=== PATIENT | male | born 1965 | race Caucasian/White ===

== ENCOUNTER 2018-06-08 10:49 | Emergency (ER) | payer MEDICARE, MEDICAID ==
--- NOTE | 2018-06-08 11:05 | Emergency Department Record ---
History of Present Illness - General Chief Complaint: Suture removal Stated Complaint: SUTURE REMOVED Time Seen by Provider: 06/08/18 11:01 Source: Patient, Family Mode of arrival: Ambulatory Limitations: Physical limitation - History of Present Illness Initial Comments: family states sutures to left forehead for "about two weeks". No complaints. No issues Onset/Timin -: Week(s) Initial Visit For: Laceration Returns Today for: Staple/stitch removal Symptoms Since Prior Visit: No new symptoms Associated Symptoms: None - Related Data Home Medications Medication Instructions Recorded Confirmed Last Taken Phenytoin Sodium Extended 200 mg PO QHS 06/08/18 06/08/18 Unknown [Phenytek] Phenytoin [Dilantin] 50 mg PO QHS 06/08/18 06/08/18 Unknown Allergies Allergy/AdvReac Type Severity Reaction Status Date / Time Penicillins [PENICILLINS] Allergy Unknown pt unsure Unverified 06/08/18 11:05 Review of Systems Constitutional: Denies: Chills, Fever Eyes: Denies: Eye pain ENT: Denies: Congestion Skin: Reports: As per HPI Physical Exam - General General Appearance: Alert, Cooperative, No acute distress - Head Head exam: Atraumatic (wll healed lac to left forehead without signs of infection. ) - Eye Eye exam: Normal appearance - ENT ENT exam: Normal exam - Respiratory Respiratory exam: Normal lung sounds bilaterally - Cardiovascular Cardiovascular Exam: Regular rate - Skin Skin exam: Other (as above) Medical Decision Making - Management Options MDM Management: No Additional Work-up Planned (suture removal and home with local care) Disposition Disposition: Discharge Clinical Impression: Encounter for removal of sutures Disposition: Home, Self-Care Condition: (1) Good Instructions: Stitches Removal (ED) Additional Instructions: Watch for signs of infection and follow up if needed. Forms: Patient Portal Access Quality - Quality Measures Quality Measures: N/A - Blood Pressure Screening Does Patient Have Any of the Following: No Blood Pressure Classification: Normal BP Reading Systolic Measurement: 93 Diastolic Measurement: 78 Screening for High Blood Pressure: < Normal BP, F/U Not Required > [G8783]
== END 2018-06-08 11:27 | disposition home or self-care (01) ==
LOC: ER 10:49
DX: Z48.02 Encounter for removal of sutures (principal)
CPT/HCPCS: 99281

== ENCOUNTER 2019-05-05 13:42 | Emergency (ER) | payer MEDICARE, MEDICAID ==
[2019-05-05] MEDS ORDERED: ACETAMINOPHEN 325 MG TAB PO ONE (14:07)
--- NOTE | 2019-05-05 14:09 | Emergency Department Record ---
History of Present Illness - General Chief Complaint: Neck Injury/Pain Stated Complaint: NECK PAIN Time Seen by Provider: 05/05/19 13:58 Source: Patient Mode of Arrival: Ambulatory Limitations: No limitations - History of Present Illness Initial Comments: The patient is here with his caregiver due to possibly having neck pain for the last few days. He has a hx of a seizure disorder and a head injury and has a [employer]IOR [employer] shunt in place. The patient requires 24 hour care and does not walk and is in a wheelchair at all times. Per the caregiver he has had a "head cold" for the last 5 days and now for a few days seems to be having neck pain. There is no reported POON, vomiting, weakness, or lethargy. Per the caregiver the patient has had no fevers or chills, and no fall or trauma. The caregiver is concerned the patient could have pneumonia or muscle spasms from trying to blow his nose. MD Complaint: Neck pain Onset/Timin -: Days(s) Place: Home Severity: Moderate Severity scale (1-10): 8 - Related Data Previous Rx's Medication Instructions Recorded Levofloxacin [Levaquin] 500 mg PO DAILY #6 tablet 05/05/19 Allergies Allergy/AdvReac Type Severity Reaction Status Date / Time Penicillins [PENICILLINS] Allergy Unknown pt unsure Verified 05/05/19 13:56 Travel Screening - Travel/Exposure Within Last 30 Days Have you traveled within the last 30 days?: No - Travel Symptoms Symptom Screening: None Review of Systems Constitutional: Reports: Malaise. Denies: Chills, Fever Eyes: Denies: Eye discharge ENT: Reports: Congestion Respiratory: Reports: Cough. Denies: Dyspnea Cardiovascular: Denies: Arrhythmia Endocrine: Denies: Fatigue Past Medical History - SOCIAL HISTORY Smoking Status: Never smoker Alcohol Use: None Drug Use: None - RESPIRATORY Hx Respiratory Disorders: No - CARDIOVASCULAR Hx Cardio Disorders: No - NEURO Hx Neuro Disorders: Yes Hx Seizures: Yes - GI Hx GI Disorders: No - Hx Genitourinary Disorders: No - ENDOCRINE Hx Endocrine Disorders: No - MUSCULOSKELETAL Hx Musculoskeletal Disorders: No - PSYCH Hx Psych Problems: No - HEMATOLOGY/ONCOLOGY Hx Hematology/Oncology Disorders: No Family Medical History Any Significant Family History?: No Physical Exam - General General Appearance: Alert, Cooperative, No acute distress - Head Head exam: Atraumatic, Normocephalic, Normal inspection - Eye Eye exam: Normal appearance, PERRL - ENT ENT exam: TM's normal bilaterally Nasal Exam: negative: Sinus tenderness Throat exam: Normal inspection - Neck Neck exam: Normal inspection, Tenderness (There is posterior cervical muscle tenderness.) - Respiratory Respiratory exam: Normal lung sounds bilaterally. negative: Respiratory distress - Cardiovascular Cardiovascular Exam: Regular rate, Normal rhythm, Normal heart sounds - GI/Abdominal GI/Abdominal exam: Soft, Normal bowel sounds. 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 negative: Normal gait, Oriented X3 Course Vital Signs 05/05/19 13:48 Temperature 99.0 F Pulse Rate 79 Respiratory 18 Rate Blood Pressure 120/93 Pulse Ox 95 - Reevaluation(s) Reevaluation #1: The patient is feeling better at this time. His neck pain is improved and he did take his Levaquin. I did discuss the low Dilantin level with the caregiver and she states he has been receiving his Dilantin. The patient has not had a seizure in 30 years so we will just have him double his doses for a day then go back to his regular dosing. The patient is to see his PCP next week to recheck the levels. 05/05/19 15:29 Medical Decision Making - Data Complexity MDM Data: Labs Ordered and/or Reviewed, X-Ray Ordered and/or Reviewed - Lab Data Result diagrams: 05/05/19 14:21 05/05/19 14:21 - Radiology Data Radiology results: Report reviewed (CXR: Neg for any acute changes. Head and Cervical CT: Neg for acute intracranial issues, Shunt normal, Positive for pansinusitis.) Disposition Disposition: Discharge Clinical Impression: Sinusitis Qualifiers: Sinusitis location: unspecified location Chronicity: acute Recurrence: not spe cified as recurrent Qualified Code(s): J01.90 - Acute sinusitis, unspecified Disposition: Home, Self-Care Condition: (2) Stable Instructions: Rhinosinusitis (ED) Additional Instructions: Please use Tylenol and Motrin for the neck pain and continue the Levaquin for 6 more days. Please see your family doctor for recheck next week and have your Dilantin level rechecked. Return to the ER for any worsening symptoms or pain or fever. Prescriptions: Levofloxacin [Levaquin] 500 mg PO DAILY #6 tablet Forms: Patient Portal Access Time of Disposition: 15:33 Quality - Quality Measures Quality Measures: N/A - Blood Pressure Screening View Details: Yes Does Patient Have Any of the Following: No Blood Pressure Classification: Hypertensive Reading Systolic Measurement: 120 Diastolic Measurement: 93 Screening for High Blood Pressure: < First Hypertensive BP, F/U Documented > [G8950] First Hypertensive Follow-up Interventions: Referral to alternative/primary care provider.
[2019-05-05 14:49] LABS: ABSOLUTE NEUTROPHIL COUNT 13.14; BASO % 0.1 % (0-6); EOS % 0.1 % (0-6); GRAN % 78.7 % (47-80); HEMATOCRIT 45.9 % (42.0-52.0); HEMOGLOBIN 14.7 gm/dl (14.0-18.0); MEAN CORPUSCULAR HEMOGLOBIN 30.8 pg (27-33); MEAN PLATELET VOLUME 9.8 fl (7.4-10.4); MONO % 15.1 % (0-9); PLATELET COUNT 358 K/uL (130-400); RED BLOOD COUNT 4.78 M/uL (4.40-5.70); RED CELL DISTRIBUTION WIDTH 13.6 % (11.5-14.5); WHITE BLOOD COUNT W/O DIFF 16.7 K/uL (4.2-12.2)
[2019-05-05] MEDS ORDERED: IBUPROFEN 600 MG TABLET PO ONE (14:56)
[2019-05-05 15:03] LABS: BLOOD UREA NITROGEN 13 mg/dL (6-20); CREATININE 0.7 mg/dL (0.7-1.2); EST GLOMERULAR FILTRATION RATE > 60 mL/min
[2019-05-05 15:06] LABS: GLUCOSE,RANDOM 133 mg/dL (74-109)
[2019-05-05 15:08] LABS: ALB/GLOB RATIO 1.2 (1.1-1.8); ALBUMIN 4.3 g/dL (4.0-5.0); ALT/SGPT 26 U/L (<41); AST/SGOT 27 U/L (10.0-50.0); DILANTIN-PHENYTOIN 2.5 ug/mL (10-20)
[2019-05-05] MEDS ORDERED: LEVOFLOXACIN 500 MG TABLET PO ONE (15:08)
[2019-05-05 15:09] LABS: ALKALINE PHOSPHATASE 98 U/L (40-129)
--- NOTE | 2019-05-08 07:40 | CT SCAN REPORT ---
EXAM: CT SCAN OF THE BRAIN WITHOUT CONTRAST HISTORY: NECK PAIN. HEADACHE. NO KNOWN INJURY. TECHNIQUE: Standard CT imaging of the brain was performed without contrast. Comparison: None. FINDINGS: The brain volume is normal. A ventriculoperitoneal shunt is in place entering from a right frontal approach. The tip terminates just lateral to the anterior horn of the left lateral ventricle. There is no evidence for hydronephrosis. The brain parenchyma is unremarkable. There is no mass, mass effect, intracranial hemorrhage, or abnormal extraaxial fluid. The skull is intact. The orbits and mastoids are normal. There is near complete opacification of the frontal and ethmoid sinuses with moderate mucosal thickening and fluid within the maxillary sinuses. There is a small amount of fluid and mucosal thickening within the sphenoid sinuses. IMPRESSION: 1. NO ACUTE INTRACRANIAL ABNORMALITY. [employer] SHUNT IN PLACE. 2. PANSINUSITIS. JOB NUMBER: [id number] [facility]
--- NOTE | 2019-05-08 07:46 | CT SCAN REPORT ---
EXAM: CT SCAN OF THE CERVICAL SPINE WITHOUT CONTRAST HISTORY: NECK PAIN AND HEADACHE. NO KNOWN INJURY. TECHNIQUE: Standard CT imaging of the cervical spine was performed in the axial plane without contrast. Additional coronal and sagittal reformatted images were also performed. Comparison: Cervical spine x-rays dated 12/08/12. FINDINGS: There is mild straightening of the cervical lordosis. There is very slight anterolisthesis of C3 on C4 which appears degenerative in nature. There is severe disk space narrowing from the C4 through the C7 levels with associated end plate degenerative change. Moderate disk space narrowing is noted at the remaining cervical levels. There is no acute fracture, subluxation, or prevertebral soft tissue swelling. Facet arthropathy is present throughout. There is borderline to mild central canal stenosis from the C3 through the C7 levels. Moderate bilateral neural foraminal narrowing is noted as well from the C3 through the C7 levels. There is mild levoconvex scoliosis within the cervical region. A ventriculoperitoneal shunt traverses the right lateral neck. The shunt is normal in appearance. The neck soft tissues are unremarkable. The lung apices are clear. IMPRESSION: 1. NO ACUTE CERVICAL SPINE PATHOLOGY. 2. EXTENSIVE MULTILEVEL DEGENERATIVE DISK DISEASE AND FACET ARTHROPATHY DETAILED ABOVE. JOB NUMBER: [id number] [facility]
--- NOTE | 2019-05-08 07:51 | RADIOLOGY REPORT ---
EXAM: CHEST, TWO VIEWS HISTORY: COUGH AND CONGESTION. TECHNIQUE: AP and lateral upright views of the chest were obtained. Comparison: 12/08/12. FINDINGS: PUD[employer] shunt tubing traverses the chest on the right. The tube appears intact. The heart, mediastinum, and pulmonary vasculature are normal. There is minor linear atelectasis or scarring at the left lung base. There are no acute infiltrates or effusions. There is no pneumothorax. Degenerative changes are present within the shoulders. IMPRESSION: 1. MINOR ATELECTASIS OR SCARRING AT THE LEFT LUNG BASE. 2. NO ACUTE CHEST PATHOLOGY. J[facility]BER: [id number] [facility]
== END 2019-05-05 15:40 | disposition home or self-care (01) ==
LOC: ER 13:42
DX: J01.90 Acute sinusitis, unspecified (principal); M54.2 Cervicalgia; R51 Headache; R05 Cough; R26.0 Ataxic gait; R89.2 Abnormal level of other drugs, medicaments and biological substances in specimens from other organs, systems and tissues; G40.909 Epilepsy, unspecified, not intractable, without status epilepticus
CPT/HCPCS: 70450; 71046; 72125; 80053; 80185; 85025; 99283; 99284